=== PATIENT | female | born 1935 | race Caucasian/White ===

== ENCOUNTER 2018-04-17 11:55 | Outpatient (CLI) | payer MEDICARE | END 2018-04-17 11:56 | disposition home or self-care (01) | LOC: BICMAMMO 11:55 | PROVIDERS: ATTEND Internal Medicine | DX: Z12.31 Encounter for screening mammogram for malignant neoplasm of breast (principal); R92.1 Mammographic calcification found on diagnostic imaging of breast; Z80.3 Family history of malignant neoplasm of breast | CPT/HCPCS: 77063; 77067 ==

== ENCOUNTER 2018-07-16 10:59 | Outpatient (CLI) | payer MEDICARE ==
--- NOTE | 2018-07-16 13:12 | RAD ---
TWO VIEWS CHEST: Comparison: None. History: Dyspnea. FINDINGS: Two views chest shows a normal sized cardiomediastinal silhouette with atherosclerotic calcifications in the aorta. There is a moderate hiatal hernia. There is no evidence of consolidation, mass, or ple ural effusion. IMPRESSION: 1. No evidence of acute cardiopulmonary disease. 2. Hiatal hernia. POS: [facility]
== END 2018-07-16 11:00 | disposition home or self-care (01) ==
LOC: RAD 10:59
PROVIDERS: ATTEND Internal Medicine Critical Care Medicine
DX: R06.00 Dyspnea, unspecified (principal); K44.9 Diaphragmatic hernia without obstruction or gangrene
CPT/HCPCS: 71046

== ENCOUNTER 2021-03-19 03:08 | Inpatient (IN) | payer MEDICARE ==
[2021-03-19 16:37] VITALS: BMI 32.2
[2021-03-24 16:49] VITALS: BP 143/69; TEMP 97.9
== END 2021-03-24 17:01 | disposition home health service (06) | DRG 354 ==
LOC: ERS 03:08 → ERHOLD 07:50 → SURG A 13:38
PROVIDERS: ADMIT Specialist; ATTEND Specialist
PROC: 0WQF0ZZ Repair Abdominal Wall, Open Approach (ICD-10-PCS; principal; 2021-03-19)
PROC: 0D9670Z Drainage of Stomach with Drainage Device, Via Natural or Artificial Opening (ICD-10-PCS; 2021-03-19)
DX: K43.0 Incisional hernia with obstruction, without gangrene (principal); E87.1 Hypo-osmolality and hyponatremia; E78.5 Hyperlipidemia, unspecified; I10 Essential (primary) hypertension; M19.90 Unspecified osteoarthritis, unspecified site; E03.9 Hypothyroidism, unspecified; J45.909 Unspecified asthma, uncomplicated; Z20.822 Contact with and (suspected) exposure to COVID-19; Z90.49 Acquired absence of other specified parts of digestive tract; Z90.710 Acquired absence of both cervix and uterus; Z98.890 Other specified postprocedural states; Z88.1 Allergy status to other antibiotic agents; Z88.5 Allergy status to narcotic agent; Z88.2 Allergy status to sulfonamides; Z79.890 Hormone replacement therapy; Z79.899 Other long term (current) drug therapy; Z79.51 Long term (current) use of inhaled steroids
CPT/HCPCS: 36415; 74018; 74177; 80048; 80053; 85025; 93005; 94640; 94664; J1100; J1650; J1885; J2270; J2405; J2543; J2704; J3010; J3490; J7620; Q9967; S0020; S0028; U0002; U0005